=== PATIENT | male | born 1985 | race Caucasian/White ===

== ENCOUNTER 2021-09-09 11:46 | Emergency (ER) | payer OTHER ==
[~2021-09-09] VITALS: Ht 170.2 cm; Wt 76.7 kg
[~2021-09-09 11:46] MED LIST: ACEASPCAF; AMOX500 PO; CEPH500 PO; FEXPSEER PO; HYDACE5 PO; IBUP600 PO; IBUP800 PO; LAVAP17G PO; NAPR500 PO; OXYACE5T PO; OXYACE7.5T PO; PENVK250 PO; PENVK500 PO; PROM25 PO; RXNEOPOLHC AS; RXOXYACE PO; RXPENVK250 PO; SULTRIDS PO; TRAM50 PO; ZYRTEC10 M2 PO; Zofran8 MG PO
== END 2021-09-09 14:44 | disposition home or self-care (01) ==
LOC: ER 11:46
DX: S61.217A Laceration without foreign body of left little finger without damage to nail, initial encounter (principal); F17.200 Nicotine dependence, unspecified, uncomplicated; W26.0XXA Contact with knife, initial encounter; Z23 Encounter for immunization; Z79.899 Other long term (current) drug therapy
CPT/HCPCS: A9270

== ENCOUNTER 2023-01-04 12:49 | Emergency (ER) | payer OTHER ==
[~2023-01-04] VITALS: Ht 170.2 cm; Wt 74.8 kg
[2023-01-04 13:18] LABS: BASOPHILS PERCENT AUTO 0 % (0-2); EOSINOPHILS ABSOLUTE AUTO 0.11 K/mm3 (0.00-0.68); EOSINOPHILS PERCENT AUTO 2 % (0-6); Hematocrit 41.6 % (37.0-53.0); Hemoglobin 14.5 g/dL (13.5-17.5); IMMATURE GRAN ABSOLUTE AUTO 0.03 K/mm3 (0.00-0.10); IMMATURE GRAN PERCENT AUTO 0 % (0-1); LYMPHOCYTES ABSOLUTE AUTO 1.51 K/mm3 (0.84-5.20); LYMPHOCYTES PERCENT AUTO 20 % (21-46); MONOCYTES ABSOLUTE AUTO 0.44 K/mm3 (0.16-1.47); MONOCYTES PERCENT AUTO 6 % (4-13); Mean Corpuscular HGB 30.9 pg (26.0-34.0); Mean Corpuscular HGB Conc 34.9 g/dL (31.5-36.5); Mean Corpuscular Volume 89 fL (80-100); Mean Platelet Volume 9.9 fL (9.1-12.4); NEUTROPHILS PERCENT AUTO 72 % (41-73); Platelet Count 200 K/mm3 (150-400); RDW Coefficient Variation 12.4 % (11.7-14.2); RDW Standard Deviation 40.4 fL (35.1-46.3); Red Blood Cell Count 4.69 M/mm3 (4.30-5.90); White Blood Cell Count 7.39 K/mm3 (4.00-11.30)
[2023-01-04 13:38] LABS: Albumin, Blood 3.9 g/dL (3.4-5.0); Albumin/Globulin Ratio 1.1 (0.8-1.8); Bilirubin, Total 0.1 mg/dL (0.1-1.0); Bun/Creatinine Ratio 9.8 (12.0-20.0); Calcium, Blood 9.5 mg/dL (8.5-10.1); Creatinine, Blood 1.02 mg/dL (0.60-1.20); Globulin, Blood 3.5 g/dL (2.2-4.0); Total Protein, Blood 7.4 g/dL (6.4-8.2)
[2023-01-04 17:19] VITALS: BP 126/72
== END 2023-01-04 17:48 | disposition home or self-care (01) ==
LOC: ER 12:49
PROVIDERS: Physician Assistant
DX: R00.2 Palpitations (principal); J01.90 Acute sinusitis, unspecified; Z79.899 Other long term (current) drug therapy; F17.200 Nicotine dependence, unspecified, uncomplicated
CPT/HCPCS: 71046; 80053; 83690; 83880; 84484; 85025; 93005; 93010; 96361; 96374; 99284-25; A9270; J1885; J7030